=== PATIENT | male | born 1970 | race Two or more races ===

== ENCOUNTER → 2017-05-28 | Outpatient (CLI) | payer BC ==
--- NOTE | 2017-05-28 12:03 | RADRPT ---
PROCEDURE: CR Right Knee CLINICAL INDICATION: Pain TECHNIQUE: 4 views including a patellar view were submitted. COMPARISON: None FINDINGS: Osseous Structures: A 1.8 x 0.6 cm nonaggressive appearing lucency with sclerotic margination is see n within the medial posterior anterior tibial metadiaphysis compatible with a benign cortical defect . The osseous elements otherwise appear intact. Join Spaces: The joint spaces are well maintained. No joint effusion is identified. Soft Tissues: The soft tissues appear unremarkable. IMPRESSION: 1. Nonaggressive lesion most compatible with a benign cortical defect seen within the posterior med ial proximal right tibial metadiaphysis. 2. Otherwise, unremarkable right knee series. Physician Duke Date Time Electronically viewed and signed by Physician Duke on 05/28/2017 12:03 /
== END | disposition home or self-care (01) ==
LOC: HKI 09:50
PROVIDERS: ATTEND Orthopaedic Surgery
DX: M25.561 Pain in right knee (principal); M22.41 Chondromalacia patellae, right knee; S83.231A Complex tear of medial meniscus, current injury, right knee, initial encounter; D16.9 Benign neoplasm of bone and articular cartilage, unspecified
CPT/HCPCS: 73564; G0463